=== PATIENT | female | born 1960 | race Caucasian/White ===

== ENCOUNTER 2023-01-31 20:09 | Emergency (ER) | payer BC ==
[2023-01-31] MEDS ORDERED: ONDANSETRON 4 MG/2 ML VIAL ONE (20:42)
[2023-01-31] MEDS ORDERED: FAMOTIDINE 20 MG/2 ML VIAL IV ONE (20:42)
[2023-01-31] MEDS ORDERED: MORPHINE 4 MG/ML SYR ONE (20:42)
[2023-01-31 21:06] LABS: Absolute Lymphocytes (CBC) 2.7 K/uL (0.7-4.9); Hematocrit 43.1 % (36.0-45.0); Lymphocytes % 27.9 % (15.3-44.8); MCV 90.2 fL (80-100); MPV 9.1 fL (7.6-11.3); Platelets 294 thou/uL (152-406); RBC Red Blood Cell Count 4.77 M/uL (3.86-4.86)
--- NOTE | 2023-01-31 21:20 | RAD REPORT ---
EXAM DESCRIPTION: Isidra Single View01/31/2023 9:08 pm CLINICAL HISTORY: upper abdomen pain COMPARISON: Chest Pa And Lat (2 Views) dated 06/19/2019 TECHNIQUE: Portable AP view of the chest. FINDINGS: The lungs are clear. No pneumothorax or effusion. The cardiomediastinal contours are unre markable. IMPRESSION: No acute cardiopulmonary process.
[2023-01-31 21:21] LABS: Bilirubin Total 0.7 mg/dL (0.2-1.0); Potassium 3.4 mEq/L (3.5-5.1); Protein, Total 7.8 g/dL (6.4-8.2)
--- NOTE | 2023-01-31 21:53 | RAD REPORT ---
EXAM DESCRIPTION: US - Abdomen Exam Limited - 01/31/2023 8:52 pm CLINICAL HISTORY: ABD PAIN COMPARISON: No comparisons TECHNIQUE: Sonographic grayscale and color flow images of the right upper abdominal quadrant were obtained. FINDINGS: The gallbladder demonstrates numerous layering shadowing calculi as well as echogenic slud ge. No pericholecystic fluid or gallbladder wall thickening. The common bile duct is normal measuring 6 mm. The liver demonstrates no findings of intrahepatic biliary dilatation. IMPRESSION: Cholelithiasis. No sonographic findings to suggest acute cholecystitis.
--- NOTE | 2023-01-31 22:32 | RAD REPORT ---
EXAM DESCRIPTION: CT - Abdomen Pelvis W Contrast - 01/31/2023 10:11 pm CLINICAL HISTORY: ABD PAIN COMPARISON: No comparisons TECHNIQUE: Thin cut axial CT imaging of the abdomen and pelvis was performed following intravenous a dministration of 95 mL Isovue 300. Multiplanar reformats were generated and reviewed. All CT scans are performed using dose optimization technique as appropriate and may include automated exposure control or mA/KV adjustment according to patient size. FINDINGS: No suspicious findings in the lung bases. The liver, spleen, adrenal glands, and pancreas show no suspicious findings. Gallbladder and biliary tree are also without suspicious finding. Symmetric renal function is seen with no hydronephrosis or suspicious renal mass. No dilated bowel loops or bowel wall thickening. No free air, free fluid or inflammatory stranding. N o hernia, mass or bulky lymphadenopathy. The urinary bladder is without significant finding. No suspicious bony findings. IMPRESSION: No acute intra-abdominal process.
--- NOTE | 2023-01-31 23:01 | EDPHYS ---
Physician Documentation [facility] Name: Courtney Suarez Age: 62 yrs Sex: Female : 1960 Arrival Date: 01/31/2023 Time: 20:09 Bed 15 Private MD: ED Physician Gonzalo Salinas HPI: 01/31 20:30 This 62 yrs old Female presents to ER via Ambulatory with complaints of Abdominal Pain, cp Vomiting. 20:30 The patient presents with abdominal pain in the epigastric area. Onset: The cp symptoms/episode began/occurred this afternoon, subsided and then returned this evening. The symptoms radiate to back. Associated signs and symptoms: Pertinent positives: nausea and vomiting, Pertinent negatives: chest pain, constipation, diarrhea, fever, vomiting blood. The symptoms are described as waxing/waning. Severity of pain: in the emergency department the pain has improved mildly. Historical: - Allergies: 20:23 Codeine; kb3 - Home Meds: 20:23 metoprolol tartrate 50 mg oral tablet [Active]; Edarbyclor 40-12.5 mg oral tablet kb3 [Active]; - PMHx: 20:24 Hypertensive disorder; kb3 - PSHx: 20:24 section; Jaw surgery; kb3 - Immunization history:: Adult Immunizations up to date, Client reports receiving the 2nd dose of the Covid vaccine, Last tetanus immunization: up to date. - Social history:: Smoking status: Patient denies any tobacco usage or history of. ROS: 20:35 Constitutional: Negative for body aches, chills, fever. cp 20:35 Cardiovascular: Negative for chest pain, edema, palpitations. cp 20:35 Respiratory: Negative for cough, shortness of breath, wheezing. Exam: 20:40 Constitutional: The patient appears in no acute distress, alert, awake, cp non-diaphoretic, non-toxic, well developed, well nourished, uncomfortable. 20:40 Head/Face: Normocephalic, atraumatic. cp 20:40 Eyes: Periorbital structures: appear normal, Conjunctiva: normal, no exudate, no injection, Sclera: no appreciated abnormality, Lids and lashes: appear normal, bilaterally. 20:40 ENT: External ear(s): are unremarkable, Nose: is normal, Mouth: Lips: moist, Oral mucosa: pink and intact, moist, Posterior pharynx: is normal, airway is patent, no erythema, no exudate. 20:40 Chest/axilla: Inspection: normal. 20:40 Cardiovascular: Rate: normal, Rhythm: regular, Edema: is not appreciated, JVD: is not appreciated. 20:40 Respiratory: the patient does not display signs of respiratory distress, Respirations: normal, no use of accessory muscles, no retractions, labored breathing, is not present, Breath sounds: are clear throughout, no decreased breath sounds, no stridor, no wheezing. 20:40 Abdomen/GI: Inspection: abdomen appears normal, Bowel sounds: active, all quadrants, Palpation: soft, in all quadrants, moderate abdominal tenderness, in the epigastric area, rebound tenderness, is not appreciated, involuntary guarding, is not appreciated. 20:40 Back: CVA tenderness, is absent. 20:40 Neuro: Orientation: to person, place \T\ time. Mentation: is normal, Motor: moves all fours, strength is normal, Sensation: is normal. Vital Signs: 20:21 BP 129 / 81; Pulse 96; Resp 20; Temp 98.1; Pulse Ox 100% ; Weight 82.55 kg; Height 5 kb3 ft. 6 in. ; Pain 2/10; 23:30 BP 123 / 67; Pulse 83; Resp 16; Pulse Ox 98% ; bp 20:21 Body Mass Index 29.38 (82.55 kg, 167.64 cm) kb3 20:21 Pain Scale: Adult kb3 MDM: 20:15 Patient medically screened. cp 21:00 Differential diagnosis: AAA, acute coronary syndrome, cholecystitis, Cholelithiasis, cp gastritis, gastroesophageal reflux disease, sympomatic leaking abdominal aortic aneurysm, pancreatitis, Peptic Ulcer Disease, Perf. Duodenal Ulcer, Perf. Gastric Ulcer, Ureterolithiasis, urinary tract infection. 23:00 Data reviewed: vital signs, nurses notes, lab test result(s), radiologic studies, CT cp scan, plain films, ultrasound. 23:00 Consideration of Admission/Observation Escalation of care including cp admission/observation considered. I considered the following discharge prescriptions or medication management in the emergency department Medications were administered in the Emergency Department. See MAR. Independent interpretation of the following test(s) in the Emergency Department EKG: See my EKG interpretation above X-Ray: My interpretation is chest xray negative for infiltrates. Counseling: I had a detailed discussion with the patient and/or guardian regarding the historical points, exam findings, and any diagnostic results supporting the discharge/admit diagnosis, lab results, radiology results, the need for outpatient follow up, for definitive care, a general surgeon, to return to the emergency department if symptoms worsen or persist or if there are any questions or concerns that arise at home. Response to treatment: the patient's symptoms have markedly improved after treatment, and as a result, I will discharge patient. 01/31 20:28 Order name: CBC with Diff; Complete Time: 22:33 01/31 20:28 Order name: CMP; Complete Time: 22:33 cp 01/31 22:33 Interpretation: Normal except: K 3.4; GLUC 118; BUN 20; CRE 1.09; GFR 57; ALT 61; GLOB cp 3.8. 01/31 20:28 Order name: Lipase; Complete Time: 22:33 01/31 22:46 Interpretation: Reviewed. 01/31 20:28 Order name: US Abdomen Limited: gallbladder; Complete Time: 22:33 01/31 22:34 Interpretation: Report reviewed. 01/31 20:28 Order name: CT Abd/Pelvis - IV Contrast Only; Complete Time: 22:33 01/31 20:28 Order name: XRAY Chest (1 view); Complete Time: 22:33 01/31 20:28 Order name: IV Saline Lock; Complete Time: 21:07 01/31 20:28 Order name: Labs collected and sent; Complete Time: 21:07 01/31 22:46 Order name: PO challenge; Complete Time: 23:22 cp Administered Medications: 20:45 Drug: Famotidine IVP 20 mg Route: IVP; Site: right forearm; bp 23:12 Follow up: Response: No adverse reaction bp 20:45 Drug: Ondansetron IVP 4 mg Route: IVP; Site: right forearm; bp 23:13 Follow up: Response: No adverse reaction bp 20:45 Drug: morphine IVP or IV 4 mg Route: IVP; Infused Over: 4 mins; Site: right forearm; bp 23:15 Drug: Potassium PO Effervescent Tablet 25 mEq Route: PO; bp 23:31 Follow up: Response: No adverse reaction bp 23:15 Drug: Dicyclomine PO 20 mg Route: PO; bp 23:31 Follow up: Response: No adverse reaction bp Disposition: 21:37 Co-signature as Attending Physician, Gonzalo Salinas MD I agree with the assessment sp4 and plan of care. I reviewed the patient's care provided by the Advanced Practice Provider and agree with the diagnosis and treatment plan. Disposition Summary: 01/31/23 23:01 Discharge Ordered Location: Home cp Problem: new cp Symptoms: have improved cp Condition: Stable cp Diagnosis - Other cholelithiasis without obstruction cp - Nausea with vomiting, unspecified cp Followup: cp - With: Delon Velazquez MD - When: 2 - 3 days - Reason: Recheck today's complaints Discharge Instructions: - Discharge Summary Sheet cp - Nausea and Vomiting, Adult cp - Cholelithiasis cp Forms: - Medication Reconciliation Form cp - Thank You Letter cp - Antibiotic Education cp - Prescription Opioid Use cp - Patient Portal Instructions cp - Leadership Thank You Letter cp Prescriptions: - Zofran 4 mg Oral Tablet - take 1 tablet by ORAL route every 6 hours As needed; 20 tablet; Refills: 0, cp Product Selection Permitted - dicyclomine 20 mg Oral Tablet - take 1 tablet by ORAL route 4 times per day; 20 tablet; Refills: 0, Product cp Selection Permitted Signatures: Dispatcher [employer] EDMS Kush Cavanaugh PA PA cp Peltier, Brian, RN RN Bernice Hyatt, DELMI RN kb3 Gonzalo Salinas MD MD sp4
--- NOTE | 2023-01-31 23:01 | ER ---
Nurse's Notes [facility] Name: Courtney Suarez Age: 62 yrs Sex: Female : 1960 Arrival Date: 01/31/2023 Time: 20:09 Bed 15 Private MD: Diagnosis: Other cholelithiasis without obstruction;Nausea with vomiting, unspecified Presentation: 01/31 20:21 Chief complaint: Patient states: Periumbilical pain that began around 1530 today, kb3 02/23, radiates into RLQ. Pain subsided approximately 1 hr [employer] with only mild discomfort in RLQ at this time. 1 episode of vomiting. Coronavirus screen: Vaccine status: Patient reports receiving the 2nd dose of the covid vaccine. Client denies travel out of the [place] in the last 14 days. Ebola Screen: Patient negative for fever greater than or equal to 101.5 degrees Fahrenheit, and additional compatible Ebola Virus Disease symptoms Patient denies exposure to infectious person. Patient denies travel to an Ebola-affected area in the 21 days before illness onset. Initial Sepsis Screen: Does the patient meet any 2 criteria? No. Patient's initial sepsis screen is negative. Does the patient have a suspected source of infection? No. Patient's initial sepsis screen is negative. Risk Assessment: Do you want to hurt yourself or someone else? Patient reports no desire to harm self or others. Onset of symptoms was January 31, 2023 at 15:30. 20:21 Method Of Arrival: Ambulatory kb3 20:21 Acuity: ANSELMO 3 kb3 Triage Assessment: 20:24 General: Appears in no apparent distress. uncomfortable, Behavior is calm, cooperative. kb3 Pain: Complains of pain in right lower quadrant Pain does not radiate. Pain currently is 1 out of 10 on a pain scale. at worst was 10 out of 10 on a pain scale. Quality of pain is described as sharp, Pain began 4 hours ago. GI: Reports lower abdominal pain, nausea, vomiting. Historical: - Allergies: 20:23 Codeine; kb3 - Home Meds: 20:23 metoprolol tartrate 50 mg oral tablet [Active]; Edarbyclor 40-12.5 mg oral tablet kb3 [Active]; - PMHx: 20:24 Hypertensive disorder; kb3 - PSHx: 20:24 section; Jaw surgery; kb3 - Immunization history:: Adult Immunizations up to date, Client reports receiving the 2nd dose of the Covid vaccine, Last tetanus immunization: up to date. - Social history:: Smoking status: Patient denies any tobacco usage or history of. Screenin:30 [facility] ED Fall Risk Assessment (Adult) History of falling in the last 3 months, bp including since admission No falls in past 3 months (0 pts). Abuse screen: Denies threats or abuse. Denies injuries from another. Nutritional screening: No deficits noted. Tuberculosis screening: No symptoms or risk factors identified. Assessment: 20:30 General: SEE TRIAGE NOTE. bp 22:00 Reassessment: No changes from previously documented assessment. Patient is alert, bp oriented x 3, equal unlabored respirations, skin warm/dry/pink. 23:29 Reassessment: DC HOME AMBULATORY. bp Vital Signs: 20:21 BP 129 / 81; Pulse 96; Resp 20; Temp 98.1; Pulse Ox 100% ; Weight 82.55 kg; Height 5 kb3 ft. 6 in. ; Pain 2/10; 23:30 BP 123 / 67; Pulse 83; Resp 16; Pulse Ox 98% ; bp 20:21 Body Mass Index 29.38 (82.55 kg, 167.64 cm) kb3 20:21 Pain Scale: Adult kb3 ED Course: 20:13 Patient arrived in ED. es 20:15 Kush Cavanaugh PA is PHCP. cp 20:15 Gonzalo Salinas MD is Attending Physician. cp 20:19 Len Perrin, RN is Primary Nurse. bp 20:23 Triage completed. kb3 20:24 Arm band placed on right wrist. Patient placed in an exam room, on a stretcher. kb3 20:30 Patient has correct armband on for positive identification. Bed in low position. Call bp light in reach. Side rails up X2. 20:30 Inserted saline lock: 20 gauge in right forearm, using aseptic technique. Blood bp collected. 20:54 US Abdomen Limited: gallbladder In Process Unspecified. EDMS 21:10 XRAY Chest (1 view) In Process Unspecified. EDMS 22:12 CT Abd/Pelvis - IV Contrast Only In Process Unspecified. EDMS 23:00 Delon Velazquez MD is Referral Physician. cp 23:30 No provider procedures requiring assistance completed. IV discontinued, intact, bp bleeding controlled, No redness/swelling at site. Pressure dressing applied. Administered Medications: 20:45 Drug: Famotidine IVP 20 mg Route: IVP; Site: right forearm; bp 23:12 Follow up: Response: No adverse reaction bp 20:45 Drug: Ondansetron IVP 4 mg Route: IVP; Site: right forearm; bp 23:13 Follow up: Response: No adverse reaction bp 20:45 Drug: morphine IVP or IV 4 mg Route: IVP; Infused Over: 4 mins; Site: right forearm; bp 23:15 Drug: Potassium PO Effervescent Tablet 25 mEq Route: PO; bp 23:31 Follow up: Response: No adverse reaction bp 23:15 Drug: Dicyclomine PO 20 mg Route: PO; bp 23:31 Follow up: Response: No adverse reaction bp Outcome: 23:01 Discharge ordered by . cp 23:31 Discharged to home ambulatory, with family. bp 23:31 Condition: stable 23:31 Discharge instructions given to patient, Instructed on discharge instructions, follow up and referral plans. medication usage, Demonstrated understanding of instructions, follow-up care, medications, Prescriptions given X 2. 23:32 Patient left the ED. bp Signatures: Dispatcher [employer] Isabella Liu Corey, PA PA cp Peltier, Brian, DELMI RN Bernice Hyatt, RN RN kb3
[2023-01-31] MEDS ORDERED: DICYCLOMINE HCL 10 MG CAP ONE (23:26)
[2023-01-31] MEDS ORDERED: POTASSIUM 25 MEQ EFFERV TAB ONE (23:26)
[2023-02-01 00:31] VITALS: TEMP 98.1
[2023-02-01 00:33] VITALS: BP 123/67; O2SAT 98
== END 2023-01-31 23:32 | disposition home or self-care (01) ==
LOC: ER 20:09
DX: K80.80 Other cholelithiasis without obstruction (principal); R11.2 Nausea with vomiting, unspecified; I10 Essential (primary) hypertension; Z88.5 Allergy status to narcotic agent
CPT/HCPCS: 85025; 36415; 83690; 80053; 74177; 71045; 76705; 96375; 96374; 99284; Q9967; J2405

== ENCOUNTER 2023-02-02 02:01 | Inpatient (IN) | payer BC ==
[2023-02-02] MEDS ORDERED: ONDANSETRON 4 MG/2 ML VIAL IV ONE (02:49)
[2023-02-02] MEDS ORDERED: NA CHLORIDE 0.9% 1,000 ML IV ONE (02:49)
[2023-02-02] MEDS ORDERED: METOCLOPRAMIDE 10 MG/2mL INJ IV ONE (03:00)
[2023-02-02 04:01] LABS: Absolute Lymphocytes (CBC) 2.6 K/uL (0.7-4.9); Lymphocytes % 20.1 % (15.3-44.8); MCV 91.4 fL (80-100); MPV 9.3 fL (7.6-11.3); Platelets 282 thou/uL (152-406); RBC Red Blood Cell Count 4.82 M/uL (3.86-4.86)
[2023-02-02 04:03] LABS: Albumin 4.1 g/dL (3.4-5.0); Potassium 3.7 mEq/L (3.5-5.1); Protein, Total 7.9 g/dL (6.4-8.2)
[2023-02-02 04:11] LABS: SARS-CoV-2 Antigen Rapid Res Negative (Negative)
--- NOTE | 2023-02-02 06:56 | ER ---
Nurse's Notes [facility] Name: Courtney Suarez Age: 62 yrs Sex: Female : 1960 Arrival Date: 02/02/2023 Time: 02:01 Bed 18 Private MD: Diagnosis: Acute cholecystitis Presentation: 02/02 02:40 Chief complaint: Patient states: ABD PAIN. Coronavirus screen: At this time, the client bp does not indicate any symptoms associated with coronavirus-19. Ebola Screen: No symptoms or risks identified at this time. Initial Sepsis Screen: Does the patient meet any 2 criteria? No. Patient's initial sepsis screen is negative. Does the patient have a suspected source of infection? No. Patient's initial sepsis screen is negative. Risk Assessment: Do you want to hurt yourself or someone else? Patient reports no desire to harm self or others. Onset of symptoms is unknown. 02:40 Method Of Arrival: Wheelchair bp 02:40 Acuity: ANSELMO 3 bp Triage Assessment: 03:40 General: Appears distressed, uncomfortable, Behavior is cooperative, appropriate for bp age, anxious. 03:40 Pain: Complains of pain in abdomen. GI: Reports upper abdominal pain. bp Historical: - Allergies: 04:38 Codeine; bp - Home Meds: 04:38 Edarbyclor 40-12.5 mg Oral tablet [Active]; metoprolol tartrate 50 mg Oral tablet bp [Active]; - PMHx: 04:38 Hypertensive disorder; bp - PSHx: 04:38 section; jaw surgery; bp - Immunization history:: Adult Immunizations up to date. - Social history:: Smoking status: unknown. - Family history:: not pertinent. Screenin:40 [facility] ED Fall Risk Assessment (Adult) History of falling in the last 3 months, bp including since admission No falls in past 3 months (0 pts). Abuse screen: Denies threats or abuse. Denies injuries from another. Nutritional screening: No deficits noted. Tuberculosis screening: No symptoms or risk factors identified. Assessment: 02:40 General: SEE TRIAGE NOTE. bp 05:13 Reassessment: Patient appears in no apparent distress at this time. Patient is alert, bp oriented x 3, equal unlabored respirations, skin warm/dry/pink. 06:30 Reassessment: Patient appears in no apparent distress at this time. Patient is alert, bp oriented x 3, equal unlabored respirations, skin warm/dry/pink. 07:00 Reassessment: Patient appears in no apparent distress at this time. Patient and/or db family updated on plan of care and expected duration. Pain level reassessed. Patient is alert, oriented x 3, equal unlabored respirations, skin warm/dry/pink. Patient states feeling better. Patient states symptoms have improved. Neuro: Level of Consciousness is awake, alert, obeys commands, Oriented to person, place, time, situation. Respiratory: Airway is patent Respiratory effort is even, unlabored, Respiratory pattern is regular, symmetrical. 08:00 Reassessment: Patient appears in no apparent distress at this time. Patient and/or db family updated on plan of care and expected duration. Pain level reassessed. Patient is alert, oriented x 3, equal unlabored respirations, skin warm/dry/pink. General: Appears in no apparent distress. comfortable, Behavior is calm, cooperative. 09:26 Reassessment: REPORT GIVEN TO DELMI JONES FOR PATIENT GOING TO 225. db 09:29 Reassessment: Patient appears in no apparent distress at this time. Patient and/or db family updated on plan of care and expected duration. Pain level reassessed. Patient is alert, oriented x 3, equal unlabored respirations, skin warm/dry/pink. GI: Vital Signs: 02:40 BP 102 / 50; Pulse 70; Resp 16; Temp 98; Pulse Ox 100% ; bp 05:13 BP 111 / 63; Pulse 76; Resp 16; Pulse Ox 96% ; bp 06:30 BP 118 / 69; Pulse 73; Resp 16; Pulse Ox 98% ; bp 07:00 BP 126 / 72; Pulse 71; Resp 16; Pulse Ox 98% on R/A; db 09:00 BP 107 / 76; Pulse 63; Resp 16; Pulse Ox 100% on R/A; db ED Course: 02:38 Patient arrived in ED. mr 02:40 Arm band placed on. bp 02:40 Patient has correct armband on for positive identification. Bed in low position. Call bp light in reach. Side rails up X2. 02:40 Inserted saline lock: 22 gauge in right antecubital area, using aseptic technique. bp Blood collected. 03:23 Len Perrin, RN is Primary Nurse. bp 03:35 Abdomen Exam Limited In Process Unspecified. EDMS 04:09 Abdomen In Process Unspecified. EDMS 04:38 Triage completed. bp 06:31 Gonzalo Salinas MD is Attending Physician. sp4 06:55 Júnior Yoon is Hospitalizing Provider. sp4 09:28 Provided Education on: ADMISSION. db 09:28 No provider procedures requiring assistance completed. Patient admitted, IV remains in db place. Administered Medications: 07:51 Drug: Rocephin - Rocephin (cefTRIAXone) IVPB 1 grams IVPB once over 30 mins; (mix in 50 db mL NS) Route: IVPB; Infused Over: 30 mins; Site: right antecubital; 08:20 Follow up: Response: No adverse reaction; IV Status: Completed infusion; IV Intake: 50mldb 08:19 Drug: metroNIDAZOLE IVPB 500 mg 100 ml IVPB at 200 ml/hr once over 30 mins Volume: 100 db ml; Route: IVPB; Rate: 200 ml/hr; Infused Over: 30 mins; Site: right antecubital; 09:25 Follow up: Response: No adverse reaction; IV Status: Completed infusion; IV Intake: db 100ml Medication: 02:40 VIS not applicable for this client. bp Intake: 08:20 IV: 50ml; Total: 50ml. db 09:25 IV: 100ml; Total: 150ml. db Outcome: 06:56 Decision to Hospitalize by Provider. sp4 09:33 Admitted to Med/surg db 09:33 Condition: stable 09:33 Instructed on the need for admit, 09:37 Patient left the ED. vg2 Signatures: Dispatcher [employer] EDMS ChurchillAlisa norton, Reg Reg Len Foster, RN RN bp Natasha Coughlin, RN RN db Gonzalo Salinas MD MD sp4 Shona Maravilla RN RN vg2
--- NOTE | 2023-02-02 06:56 | EDPHYS ---
Physician Documentation [facility] Name: Courtney Suarez Age: 62 yrs Sex: Female : 1960 Arrival Date: 02/02/2023 Time: 02:01 Bed 18 Private MD: ED Physician Gonzalo Salinas HPI: 02/02 06:31 This 62 yrs old Female presents to ER via Wheelchair with complaints of sp4 Abdominal Pain. 06:50 Patient is 62-year-old female who presented with a cute onset of moderate to severe sp4 right upper quadrant abdominal pain associated with multiple episodes of vomiting , patient states that she was here on 01/31/2023 with similar symptoms and was discharged home with Bentyl and ondansetron. At that time patient's CAT scan revealed no acute intra-abdominal process. Patient's ultrasound revealed cholelithiasis without sonographic findings to suggest acute cholecystitis. Patient reported this morning she developed severe right upper quadrant pain.. Historical: - Allergies: 04:38 Codeine; bp - Home Meds: 04:38 Edarbyclor 40-12.5 mg Oral tablet [Active]; metoprolol tartrate 50 mg Oral tablet bp [Active]; - PMHx: 04:38 Hypertensive disorder; bp - PSHx: 04:38 section; jaw surgery; bp - Immunization history:: Adult Immunizations up to date. - Social history:: Smoking status: unknown. - Family history:: not pertinent. ROS: 06:50 Constitutional: Negative for fever, chills, and weight loss, Abdomen/GI: Acute right sp4 upper quadrant abdominal pain, positive for abdominal pain, positive nausea vomiting 06:50 All other systems are negative, Exam: 06:50 Constitutional: This is a well developed, well nourished patient who is awake, alert, sp4 positive moderate distress secondary to pain Head/Face: Normocephalic, atraumatic. Eyes: Pupils equal round and reactive to light, extra-ocular motions intact. Lids and lashes normal. Conjunctiva and sclera are not injected. Cornea within normal limits. Periorbital areas with no swelling, redness, or edema. ENT: Nares patent. No nasal discharge, no septal abnormalities noted. Tympanic membranes are normal and external auditory canals are clear. Oropharynx with no redness, swelling, or masses, exudates, or evidence of obstruction, uvula midline. Mucous membranes moist. Neck: Trachea midline, no thyromegaly or masses palpated, and no cervical lymphadenopathy. Supple, full range of motion without nuchal rigidity, or vertebral point tenderness. Chest/axilla: Normal chest wall appearance and motion. Nontender with no deformity. No lesions are appreciated. Cardiovascular: Regular rate and rhythm with a normal S1 and S2. No gallops, murmurs, or rubs. Normal PMI, no JVD. No pulse deficits. Respiratory: Lungs have equal breath sounds bilaterally, clear to auscultation and percussion. No rales, rhonchi or wheezes noted. No increased work of breathing, no retractions or nasal flaring. Abdomen/GI: Soft, positive right upper quadrant tenderness, hypoactive bowel sounds, positive rebound, positive Platt sign, no rigidity or distention Back: No spinal tenderness. No costovertebral tenderness. Skin: Warm, dry with normal turgor. Normal color with no rashes, no lesions, and no evidence of cellulitis. MS/ Extremity: Pulses equal, no cyanosis. Neurovascular intact. Full, normal range of motion. Neuro: Awake and alert, GCS 15, oriented to person, place, time, and situation. Cranial nerves II-XII grossly intact. Motor strength 5/5 in all extremities. Sensory grossly intact. Psych: Awake, alert, with orientation to person, place and time. Behavior, mood, and affect are within normal limits Vital Signs: 02:40 BP 102 / 50; Pulse 70; Resp 16; Temp 98; Pulse Ox 100% ; bp 05:13 BP 111 / 63; Pulse 76; Resp 16; Pulse Ox 96% ; bp 06:30 BP 118 / 69; Pulse 73; Resp 16; Pulse Ox 98% ; bp 07:00 BP 126 / 72; Pulse 71; Resp 16; Pulse Ox 98% on R/A; db 09:00 BP 107 / 76; Pulse 63; Resp 16; Pulse Ox 100% on R/A; db MDM: 06:33 ED course: CT - Comparison: Gallbladder ultrasound report from 01/31/2023. The images sp4 were unavailable for review FINDINGS: The gallbladder is well distended and contains multiple intraluminal echoes most consistent with gallstones. There is also some echogenic debris within the lumen likely representing sludge. The gallbladder wall measures approximately 3 mm in diameter. The common bile duct measures approximately 5 mm in diameter. No definite pericholecystic fluid is identified. IMPRESSION: Cholelithiasis and sludge within the gallbladder lumen without definite biliary ductal dilatation or definite pericholecystic fluid. There is borderline gallbladder wall thickening. Findings are similar when compared to the prior study.. 06:35 ED course: IMPRESSION: 1. No evidence of acute intra-abdominal or intrapelvic sp4 pathology. 2. Heterogeneous attenuation of the liver most likely related to fatty infiltration. 3. Increased attenuation in the dependent portion of the gallbladder lumen which may be due to sludge and/or small stones. 4. Occasional colonic diverticulosis. 5. Chronic degenerative disc disease at L4-L5 and to a lesser degree L5-S1. . 06:43 Patient medically screened. sp4 06:44 ED course: CT- IMPRESSION: 1. No evidence of acute intra-abdominal or intrapelvic sp4 pathology. 2. Heterogeneous attenuation of the liver most likely related to fatty infiltration. 3. Increased attenuation in the dependent portion of the gallbladder lumen which may be due to sludge and/or small stones. 4. Occasional colonic diverticulosis. 5. Chronic degenerative disc disease at L4-L5 and to a lesser degree L5-S1.. 06:44 Consideration of Admission/Observation Patient was admitted/placed on observation. sp4 Escalation of care including admission/observation considered. Management of patient was discussed with the following: Educational Director: Dr. Velazquez with . 06:50 Differential Diagnosis altered mental status, sepsis, flu. Data reviewed: vital signs, sp4 nurses notes, old medical records, lab test result(s), radiologic studies, CT scan, ultrasound. ED course: Today ultrasound reveals signs of mild cholecystitis. We will request admission to internal medicine with consultation to general surgery. 02/02 02:53 Order name: CBC with Automated Diff; Complete Time: 06:32 EDIL 02/02 02:53 Order name: Comprehensive Metabolic Panel; Complete Time: 06: EDIL 02/02 02:53 Order name: Lipase; Complete Time: 06: EDIL 02/02 02:54 Order name: SARS-COV-2 Antigen Rapid; Complete Time: 06:32 EDIL 02/02 08:25 Order name: Magnesium EDIL 02/02 08:25 Order name: Phosphorus EDIL 02/02 08:25 Order name: Urinalysis w/ reflexes EDMS 02/02 08:25 Order name: Basic Metabolic Panel EDMS 02/02 08:25 Order name: Basic Metabolic Panel EDMS 02/02 08:25 Order name: CBC with Automated Diff EDMS 02/02 08:25 Order name: CBC with Automated Diff EDMS 02/02 08:25 Order name: Lipid Profile EDMS 02/02 08:25 Order name: Lipid Profile EDMS 02/02 02:54 Order name: Abdomen Exam Limited EDMS 02/02 02:57 Order name: Abdomen EDMS 02/02 08:33 Order name: Cholangiogram EDMS 02/02 08:25 Order name: NPO EDMS Administered Medications: 07:51 Drug: Rocephin - Rocephin (cefTRIAXone) IVPB 1 grams IVPB once over 30 mins; (mix in 50 db mL NS) Route: IVPB; Infused Over: 30 mins; Site: right antecubital; 08:20 Follow up: Response: No adverse reaction; IV Status: Completed infusion; IV Intake: 50mldb 08:19 Drug: metroNIDAZOLE IVPB 500 mg 100 ml IVPB at 200 ml/hr once over 30 mins Volume: 100 db ml; Route: IVPB; Rate: 200 ml/hr; Infused Over: 30 mins; Site: right antecubital; 09:25 Follow up: Response: No adverse reaction; IV Status: Completed infusion; IV Intake: db 100ml Disposition Summary: 02/02/23 06:56 Hospitalization Ordered Notes: Hospitalization Status: Inpatient Admission sp4 Provider: Júnior Yoon Location: Telemetry/[facility] (Inpatient) sp4 Condition: Stable sp4 Problem: new sp4 Symptoms: have improved sp4 Bed/Room Type: Standard sp4 Room Assignment: 224(02/02/23 09:19) ja1 Diagnosis - Acute cholecystitis sp4 Forms: - Medication Reconciliation Form sp4 - SBAR form sp4 - Leadership Thank You Letter sp4 Signatures: Dispatcher Med[employer] Leon Mejia RN RN Len Lyon RN RN Natasha Murphy RN RN db Potepalov, Sergey, MD MD sp4 Corrections: (The following items were deleted from the chart) 02:57 02:54 CT-ABD ordered. EDMS EDMS 09:13 06:56 sp4 ja1 09:19 09:13 225 ja1 ja1
[2023-02-02] MEDS ORDERED: KETOROLAC 30 MG/ML INJ IV ONE (07:15)
[2023-02-02] MEDS ORDERED: FENTANYL CITR 100 MCG/2 ML IV ONE (07:15)
[2023-02-02] MEDS ORDERED: CEFTRIAXONE 1000 MG/VIAL ONE (07:45)
[2023-02-02] MEDS ORDERED: METRONIDAZOLE 500mg IVPB 500 MG/100 ML BAG IV ONE (07:45)
[2023-02-02] MEDS ORDERED: NA CHLORIDE 0.9% 50 ML ONE (07:45)
[2023-02-02] MEDS ORDERED: ACETAMINOPHEN 650MG/RECT SUPP PR PRN (08:17)
[2023-02-02] MEDS ORDERED: ONDANSETRON 4 MG (ODT) TAB PO PRN (08:23)
--- NOTE | 2023-02-02 08:33 | P.HP ---
Certification for Inpatient Patient admitted to: Observation With expected LOS: <2 Midnights Patient will require the following post-hospital care: None Practitioner: I am a practitioner with admitting privileges, knowledge of patient current condition, hospital course, and medical plan of care. Services: Services provided to patient in accordance with Admission requirements found in Title 42 Section 412.3 of the Code of Federal Regulations Patient History Date of Service: 02/02/23 Reason for admission: Abdominal pain. History of Present Illness: Patient is a 62-year-old female with a past medical history significant for hypertension who presents with complaint of right upper quadrant pain onset 2 days ago. Patient was seen in the ER 2 days ago for similar symptoms and was discharged home with Bentyl and Zofran. Patient reported that she started experiencing pain again yesterday. Patient rated pain as 10/10 in severity and described pain as squeezing in quality. Patient reported associated signs and symptoms of nausea and vomiting. Patient denies any other signs and symptoms. Symptoms are aggravated or relieved by nothing. Patient decided to present to the hospital due to worsening symptoms. Allergies codeine Allergy (Verified 02/02/23 02:59) Itching/Hives/Rash Home Medications: Azilsartan Med/Chlorthalidone [Edarbyclor 40-12.5 mg Tablet] 1 tab PO BEDTIME 02/02/23 Metoprolol Tartrate 25 mg PO BID 02/02/23 - Past Medical/Surgical History -: HTN -: Jaw Surgery -: Neck Surgery -: Back Surgery -: - Family History Mother -: Cancer Father -: Cancer - Social History Smoking Status: Former smoker Alcohol use: No CD- Drugs: No Caffeine use: Yes Place of Residence: Home Review of Systems General: Unremarkable Eyes: Unremarkable ENT: Unremarkable Respiratory: Unremarkable Cardiovascular: Unremarkable Gastrointestinal: Nausea, Vomiting, Abdominal Pain Genitourinary: Unremarkable Musculoskeletal: Unremarkable Integumentary: Unremarkable Neurological: Unremarkable Lymphatics: Unremarkable Physical Examination - Physical Exam General: Alert, In no apparent distress, Oriented x3, Cooperative HEENT: Atraumatic, PERRLA, Mucous membr. moist/pink, EOMI, Sclerae nonicteric Neck: Supple, 2+ carotid pulse no bruit, No LAD, Without JVD or thyroid abnormality Respiratory: Clear to auscultation bilaterally, Normal air movement Cardiovascular: Regular rate/rhythm, Normal S1 S2 Capillary refill: <2 Seconds Gastrointestinal: Normal bowel sounds, Tenderness Musculoskeletal: No clubbing, No swelling, No tenderness Integumentary: No rashes Neurological: Normal speech, Normal tone, Normal affect Lymphatics: No axilla or inguinal lymphadenopathy - Studies Laboratory Data (last 24 hrs) 02/02/23 02/02/23 03:10 03:10 WBC 12.70 H Hgb 15.2 H Hct 44.0 Plt Count 282 Sodium 138 Potassium 3.7 BUN 18 Creatinine 1.23 H Glucose 114 H Total Bilirubin 1.0 AST 120 H ALT 119 H Alkaline Phosphatase 88 Lipase 45 Assessment and Plan - Plan --Acute cholecystitis. Patient placed on antibiotics. Surgeon consulted. We will keep patient NPO. Continue IV hydration. MRCP pending for further evaluation. We will await further recommendation from surgeon. --Acute pain. We will manage pain with current pain medication regimen. --Hypertension. Stable. We will manage BP with hydralazine as needed. --Leukocytosis. Likely secondary to acute cholecystitis. Continue antibiotics. We will continue to monitor WBC levels. --Nausea and vomiting. Antiemetics on board. Continue IV hydration. --MARLON. Baseline functions unknown. Continue IV hydration. We will continue to monitor renal functions. -- DVT prophylaxis with SCDs. Discharge Plan: Home Plan to discharge in: 48 Hours - Advance Directives Does patient have a Living Will: No Does patient have a Durable POA for Healthcare: No - Code Status/Comfort Care Code Status Assessed: Yes Physician Review: Patient Assessed, Agree with Above Assessment and Plan Critical Care: No
[2023-02-02 09:59] VITALS: BMI 29.3
[2023-02-02] MEDS: NA CHLORIDE 0.9% 1,000 ML IV SCH ×2 (10:17→22:20)
[2023-02-02 11:17] LABS: Magnesium 2.4 mg/dL (1.6-2.4); Phosphorus 2.5 mg/dL (2.5-4.9)
--- NOTE | 2023-02-02 11:48 | RAD REPORT ---
EXAM DESCRIPTION: MRI - Cholangiogram - 02/02/2023 11:22 am CLINICAL HISTORY: Acute cholecystitis COMPARISON: Abdomen Pelvis Wo Contrast dated 02/02/2023; Abdomen Exam Limited dated 02/02/2023 TECHNIQUE: Multiplanar multisequence MRI of the abdomen, obtained without IV contrast, utilizing [employer] sequences. FINDINGS: Small hypointense calculi within the gallbladder lumen, largest at the distal body measuri ng 1 cm. No pericholecystic fluid or apparent gallbladder wall thickening. No intrahepatic biliary ductal dilation. Common bile duct is normal in caliber, 4 millimeter. No filling defects to suggest choledocholithias is. Smooth tapering at the ampulla. Main pancreatic duct is not dilated. The visualized aspects of the liver, spleen, adrenal glands, pancreas, and kidneys are unremarkable. Visualized aspects of the bowel are unremarkable. No suspicious osseous lesions. Trace bilateral pleural effusions IMPRESSION: Cholelithiasis. Otherwise normal MR cholangiogram, without dilation of the biliary ducta l system or evidence of choledocholithiasis.
[2023-02-02] MEDS ORDERED: HYDRALAZINE HCL 20 MG/ML VIAL IV PRN (11:54)
[2023-02-02] MEDS: PIPER TAZO 3.375 GM in NA CHLORIDE 0.9% 100 ML IV SCH ×2 (12:06→17:12)
--- NOTE | 2023-02-02 17:01 | CON ---
Date of Consultation: 02/02/2023 Reason For Service: Symptomatic cholelithiasis, acute cholecystitis. History Of Present Illness: This is the case of a 62-year-old patient, who comes to us with epigastr ic right upper quadrant pain, radiating to the back associated with nausea and vomiting. Apparently, she came to the hospital 2 days ago on Wednesday night, but after receiving some treatment, apparentl y she felt better and she was discharged home. 48 hours later, she comes back with the abdominal kallie n in fact at the same time after eating. At this time, she was admitted for IV antibiotics and surgi luis options of cholecystectomy. She denies any dysuria, hematuria, hematochezia, melena. Denies any recent traveling out of the country. Denies any family member sick at home. Denies any jaundice. Review of Systems: Nausea, vomiting, abdominal pain. Ten points otherwise unremarkable. Physical Examination: General: The patient is awake, alert. HEENT: Pupils are equal, reactive. Anicteric. Neck: Supple. Chest: Clear. Heart: S1, S2. Abdomen: Soft and depressible. There is epigastric right upper quadrant tenderness with Platt sign positive. Breasts: Deferred. Pelvic: Deferred. Rectal: Deferred. Extremities: Good capillary refill. Past Medical History: Shows hypertension. Social History: She does not smoke. She does drink alcohol. Allergies: REVIEWED. Medications: Reviewed. Laboratory Data: Blood work reviewed with AST and ALT mildly elevated. Imaging: Ultrasound shows cholelithiasis. MRCP is still pending. Assessment: Symptomatic cholelithiasis, acute cholecystitis. The patient wants to use surgical opti ons at this moment, so we explained to her the options of laparoscopic possible open cholecystectomy with benefits, alternatives and risks including, but not limited to infection, bleeding, damage to ad jacent structures, anesthesia complication, choledocholithiasis, bile leak, pancreatitis, [place], and gildardo n . She also understands this may not relieve any symptoms. She might need more than one surgi luis intervention. We are going to continue with this plan, obviously depending on that MRCP results. LATRICIA/LAMONTE Voice ID: [id number] Report ID: [id number]
--- NOTE | 2023-02-02 17:48 | RAD REPORT ---
EXAM DESCRIPTION: CT - Abdomen Pelvis Wo Contrast - 02/02/2023 7:07 am CLINICAL HISTORY: 62 years Female abdominal pain RUQ TECHNIQUE: Axial CT imaging of the abdomen and pelvis was performed without oral or intravenous cont rast. Sagittal and coronal reconstructed images were then performed. The CT study is performed acco rding to ALARA (as low as reasonably achievable) or ALARA/IMAGE GENTLY, with automatic adjustment of mA and/or kV according to patient size. Performed on: 02/02/2023 at 4:01 AM COMPARISON: CT abdomen and pelvis with IV contrast performed on 01/31/2023. FINDINGS: Lung bases: The lung bases are clear. There is minimal bibasilar atelectasis and/or fibros is. Liver: The liver is normal in size and configuration. No focal hepatic abnormalities are appreciated on this unenhanced scan. There is heterogeneous attenuation of the liver most likely related to fatty infiltration. Spleen: The spleen is normal in size, configuration and attenuation. No focal splenic abnormalities a re appreciated on this unenhanced scan. Gallbladder and bile duct: The gallbladder is well distended. There is increased attenuation in the dependent portion of the gallbladder lumen which may be due to sludge and/or small stones. There is no biliary ductal dilatation. Pancreas: The pancreas is grossly normal in size and configuration. Adrenal Glands: The adrenal glands are normal in size and configuration. Kidneys: The kidneys are normal in size and configuration. There is no evidence of hydronephrosis. Th ere is no evidence of nephrolithiasis. No focal renal abnormalities are identified. Stomach: The stomach is grossly normal. There is no definite hiatal hernia. Bowel: The bowel gas pattern is non specific and non obstructive. There is occasional colonic diverti culosis. Appendix: The appendix is normal. Free air: There is no evidence of free air. Free fluid: There is no evidence of free fluid. Vasculature: The aorta is normal in caliber and contour. The inferior vena cava is grossly unremarkab le. There are very mild atherosclerotic calcifications along the abdominal aorta. Lymphadenopathy: No pathologic lymphadenopathy is identified. Bladder: The bladder is well distended and smooth in contour. There is increased attenuation within t he bladder lumen likely related to contrast excretion from the recent contrast-enhanced CT examinatio n. Reproductive: The uterus is grossly within normal limits. Bones: No acute osseous abnormalities are identified. There is chronic degenerative disc disease at L 4-L5 and to a lesser degree L5-S1. Soft tissues: No acute soft tissue abnormalities are identified. IMPRESSION: 1. No evidence of acute intra-abdominal or intrapelvic pathology. 2. Heterogeneous attenuation of the liver most likely related to fatty infiltration. 3. Increased attenuation in the dependent portion of the gallbladder lumen which may be due to slud ge and/or small stones. 4. Occasional colonic diverticulosis. 5. Chronic degenerative disc disease at L4-L5 and to a lesser degree L5-S1. Electronically signed by: Fiona Kolb DO 02/02/2023 5:36 AM CDT Due to temporary technical issues with the PACS/Fluency reporting system, reports are being signed by the in house radiologists without review as a courtesy to insure prompt reporting. The interpreting radiologist is fully responsible for the content of the report
--- NOTE | 2023-02-02 17:50 | RAD REPORT ---
EXAM DESCRIPTION: US - Abdomen Exam Limited - 02/02/2023 3:34 am CLINICAL HISTORY: 62 years Female Ruq abdominal pain TECHNIQUE: Limited sonographic imaging of the right upper quadrant was performed on 02/02/2023 at 3: 27 AM. Imaging was performed to evaluate the gallbladder Comparison: Gallbladder ultrasound report from 01/31/2023. The images were unavailable for review FINDINGS: The gallbladder is well distended and contains multiple intraluminal echoes most consisten t with gallstones. There is also some echogenic debris within the lumen likely representing sludge. T he gallbladder wall measures approximately 3 mm in diameter. The common bile duct measures approximat demar 5 mm in diameter. No definite pericholecystic fluid is identified. IMPRESSION: Cholelithiasis and sludge within the gallbladder lumen without definite biliary ductal d ilatation or definite pericholecystic fluid. There is borderline gallbladder wall thickening. Finding s are similar when compared to the prior study. Electronically signed by: Fiona Kolb DO 02/02/2023 5:28 AM CDT Due to temporary technical issues with the PACS/Fluency reporting system, reports are being signed by the in house radiologists without review as a courtesy to insure prompt reporting. The interpreting radiologist is fully responsible for the content of the report
[2023-02-03] MEDS: PIPER TAZO 3.375 GM in NA CHLORIDE 0.9% 100 ML IV SCH ×3 (00:50→16:00)
[2023-02-03] MEDS: NA CHLORIDE 0.9% 1,000 ML IV SCH ×2 (00:50→15:59)
[2023-02-03 03:27] LABS: Absolute Lymphocytes (CBC) 2.4 K/uL (0.7-4.9); Hematocrit 41.6 % (36.0-45.0); Lymphocytes % 39.7 % (15.3-44.8); MCV 91.6 fL (80-100); MPV 8.8 fL (7.6-11.3); Platelets 298 thou/uL (152-406); RBC Red Blood Cell Count 4.54 M/uL (3.86-4.86)
[2023-02-03 03:39] LABS: Potassium 3.5 mEq/L (3.5-5.1)
[2023-02-03] MEDS ORDERED: KCL 20 MEQ/100 mL IVPB 20 MEQ/100 ML BAG IV SCH (08:00)
[2023-02-03] MEDS: FENTANYL CITR 100 MCG/2 ML IV PRN ×2 (08:17→22:44)
[2023-02-03] MEDS ORDERED: FENTANYL CITR 100 MCG/2 ML ONE (13:22)
[2023-02-03] MEDS ORDERED: ROCURONIUM 50 MG/5 ML VIAL IV ONE (14:02)
[2023-02-03] MEDS ORDERED: LIDOCAINE 2% MPF 5 ML VIAL ONE (14:02)
[2023-02-03] MEDS ORDERED: propofoL 200 MG/20 ML VIAL IV ONE (14:02)
[2023-02-03] MEDS ORDERED: ONDANSETRON 4 MG/2 ML VIAL ONE ×2 (14:02→15:53)
[2023-02-03] MEDS ORDERED: MIDAZOLAM HCL 2 MG/2 ML INJ ONE (14:02)
--- NOTE | 2023-02-03 14:03 | P.PN ---
Subjective Date of Service: 02/03/23 Chief Complaint: Abdominal pain. Patient has no new complaint today. She denies any nausea vomiting. She denies right upper quadrant pain today. Physical Examination - Vital Signs Temperature: 97.3 F Blood Pressure: 122/68 Pulse: 81 Respirations: 16 Pulse Ox (%): 94 Assessment And Plan - Plan Physical Exam General: Alert, In no apparent distress, Oriented x3, Cooperative HEENT: Anicteric sclera. Respiratory: Clear to auscultation bilaterally, Normal air movement Cardiovascular: Regular rate/rhythm, Normal S1 S2 Gastrointestinal: Normal bowel sounds, nontender Musculoskeletal: No swelling, No tenderness Integumentary: No rashes Neurological: Normal speech, Normal tone, Normal affect Diagnosis Acute calculous cholecystitis Chronic kidney disease stage III. Plan Acute calculus cholecystitis MRCP negative for choledocholithiasis. Patient seen and evaluated by surgery Dr. Velazquez. She is planned for lap cholecystectomy today. Mild leukocytosis resolved. Empiric antibiotics. Chronic kidney disease stage III Continue IV hydration and monitor renal function. DVT prophylaxis: SCDs. Discharge Plan: Home
[2023-02-03] MEDS ORDERED: Ringers Lactate 1,000 ML IV ONE (14:17)
[2023-02-03] MEDS ORDERED: dexAMETHasone 4 MG/ML VIAL ONE (14:39)
[2023-02-03] MEDS ORDERED: dexAMETHasone 10 MG/ML VIAL ONE (14:40)
--- NOTE | 2023-02-03 15:02 | P.BOP ---
Preoperative diagnosis: acute cholecystitis, symptomatic cholelithiasis Postoperative diagnosis: same, umbilical hernia Primary procedure: Laparoscopic cholecystectomy Secondary procedure: Open repair of umbilical hernia Estimated blood loss: <10cc Specimen: gb Findings: inflammed dilated GB Anesthesia: General Complications: None Drain(s): ELLE drain Transferred to: Recovery Room Condition: Good
[2023-02-03] MEDS ORDERED: TRAMADOL 37.5mg/APAP 325mg PER TAB PO PRN (15:04)
[2023-02-03] MEDS ORDERED: MORPHINE 10 MG/ML VIAL ONE (15:09)
[2023-02-03] MEDS ORDERED: KETOROLAC 30 MG/ML INJ ONE (15:09)
[2023-02-03] MEDS ORDERED: GLYCOPYRROLATE 0.2 MG/ML SYR ONE (15:12)
[2023-02-03] MEDS ORDERED: NEOSTIGMINE 1 MG/ML -10 ML VIAL ONE (15:12)
[2023-02-03 15:32] VITALS: O2SAT 98
--- NOTE | 2023-02-03 19:52 | OP ---
Date of Procedure: 02/03/2023 Surgeon: Delon Velazquez MD Preoperative Diagnoses: Acute cholecystitis, symptomatic cholelithiasis. Postoperative Diagnoses: Acute cholecystitis, symptomatic cholelithiasis plus umbilical hernia. Procedures: Laparoscopic cholecystectomy and open repair of umbilical hernia. Estimated Blood Loss: Less than 10 cc. Specimen: Gallbladder and hernia sac. Findings: Inflamed dilated gallbladder. Anesthesia: General plus local. Drain: ELLE #10. Indications: This is a case of a female who comes to us with a second time in several days to the ER due to biliary colic and symptomatic cholelithiasis. Second time, she decided to stay and she had a n MRCP done, shows common bile duct free of stones, so a laparoscopic, possible open cholecystectomy was fully explained to the patient with benefits, alternatives, and risks including, but not limited to, infection, bleeding, damage to adjacent structures, anesthesia complication, choledocholithiasis, bile leak, pancreatitis, [place], and even . She also understands this might not relieve any sympto ms. She might need more than one surgical intervention. She understood, signed a consent. Description Of Procedure: Patient was brought to the operating room, placed in supine position. Ane sthesia was done without complication. Abdominal area was prepped and draped in usual sterile fashio n. Marcaine 0.5% was injected for local anesthetic followed by sharp incision of the skin in the inf raumbilical region. Immediately, we noticed the patient to have an umbilical hernia, some incarcerat ed fatty tissue on it. Hernia sac was removed. Fascial edges were cleaned and then Vicryl #1 placed inside the fascia. Isaias trocar was carefully introduced. Pneumoperitoneum was obtained. I place d 3 more trocars, 5 mm each one of them, 1 in epigastric area, 2 in the right upper quadrant under di rect visualization. This allowed me to put a grasper in the fundus of the gallbladder. We noticed t his gallbladder to be inflamed. There were lot of adhesions of omentum to the gallbladder probably f rom acute on chronic inflammation, so with the help of Endo Manan, we were able to lyse those and th en put another grasper in the infundibulum retracting the gallbladder in the inferolateral fashion ex posing the triangle of Calot, obtaining critical view. Carefully the cystic duct and cystic artery w ere clearly isolated circumferentially and a connection between those and the gallbladder were clearl y identified. I proceeded to ligate those by using at least 3 clips proximal, 1 clip distal, ligatio n in the middle. Same was done with the cystic artery. Small little branch of the cystic artery was also ligated using the same technique. Hepatic arteries and common bile duct were protected at all times. Gallbladder was removed from liver using Bovie cauterizer and removed from abdominal cavity u sing an EndoCatch through an umbilical incision. Area was inspected once again. No bile leak. No b leeding. I proceeded to leave a ELLE drain in that area. There was a lot of inflammation in that isaiah on from cholecystitis and I am going to leave a ELLE drain there exiting through one of the trocar site and secured that in place with a 3-0 nylon. At that moment, I proceeded to remove the trocars under direct vision, deflated the pneumoperitoneum, closing the fascia with #1 Vicryl and closed the umbil ical hernia with #1 Vicryl. Irrigated the subcutaneous tissue. The subcutaneous tissue was closed w ith 3-0 chromic and the skin with pepper. Sponge count and instrument counts were correct. Patient tolerated the procedure well. Patient was sent to Recovery in stable condition. LATRICIA/LAMONTE Voice ID: [id number] Report ID: [id number]
[2023-02-04] MEDS: PIPER TAZO 3.375 GM in NA CHLORIDE 0.9% 100 ML IV SCH ×2 (02:02→09:17)
[2023-02-04 03:50] LABS: Albumin 3.1 g/dL (3.4-5.0); Bilirubin Total 0.5 mg/dL (0.2-1.0); Protein, Total 6.6 g/dL (6.4-8.2)
[2023-02-04] MEDS: NA CHLORIDE 0.9% 1,000 ML IV SCH (05:43)
--- NOTE | 2023-02-04 08:54 | P.DS ---
Admission Date: 02/02/23 Discharge Date: 02/04/23 Disposition: ROUTINE DISCHARGE Discharge Condition: FAIR Reason for Admission: Abdominal pain. Brief History of Present Illness: Patient is a 62-year-old female with a past medical history significant for hypertension who presented with complaint of right upper quadrant pain of 2 days duration. Patient was seen in the ER 2 days prior for similar symptoms and was discharged home with Bentyl and Zofran. Patient reported that she started experiencing pain again. Patient reported associated signs and symptoms of nausea and vomiting. Abdomen US showed Cholelithiasis and sludge within the gallbladder lumen without definite biliary ductal dilatation or definite pericholecystic fluid. Borderline gallbladder wall thickening. Patient was hospitalized for further management of acute cholecystitis. Hospital Course: Diagnosis Acute calculous cholecystitis Chronic kidney disease stage III. Patient was admitted to the medical floor, started on IV Zosyn, seen by general surgery Dr. Velazquez. MRCP was negative for choledocholithiasis Dr. Velazquez performed lap cholecystectomy. Patient was monitored overnight with no issues. Patient reassessed this morning by Dr. Velazquez and she is deemed stable for discharge. She is discharged with Augmentin as empiric treatment. She is informed to follow-up with Dr. Velazquez within 1 week. Vital Signs/Physical Exam: Temp Pulse Resp BP Pulse Ox 97.0 F 65 18 119/70 94 02/04/23 04:00 02/04/23 04:00 02/04/23 04:00 02/04/23 04:00 02/04/23 04:00 General: Alert, In no apparent distress, Oriented x3 HEENT: Mucous membr. moist/pink Neck: JVD not distended Respiratory: Clear to auscultation bilaterally, Normal air movement Cardiovascular: No edema, Regular rate/rhythm, Normal S1 S2 Gastrointestinal: Normal bowel sounds, Soft and benign, Non-distended Musculoskeletal: No swelling Integumentary: No rashes, No cyanosis Neurological: Normal strength at 5/5 x4 extr Lymphatics: No axilla or inguinal lymphadenopathy Laboratory Data at Discharge: WBC 6.00 thou/uL (4.3-10.9) 02/03/23 02:50 Hgb 14.2 g/dL (12.0-15.0) 02/03/23 02:50 Hct 41.6 % (36.0-45.0) 02/03/23 02:50 Plt Count 298 thou/uL (152-406) 02/03/23 02:50 Sodium 140 mEq/L (136-145) 02/04/23 02:18 Potassium 4.0 mEq/L (3.5-5.1) D 02/04/23 02:18 BUN 16 mg/dL (7-18) 02/04/23 02:18 Creatinine 1.01 mg/dL (0.55-1.02) 02/04/23 02:18 Glucose 143 mg/dL (74-106) H 02/04/23 02:18 Phosphorus 2.5 mg/dL (2.5-4.9) 02/02/23 03:10 Magnesium 2.4 mg/dL (1.6-2.4) 02/02/23 03:10 Total Bilirubin 0.5 mg/dL (0.2-1.0) 02/04/23 02:18 AST 149 U/L (15-37) H 02/04/23 02:18 ALT 393 U/L (13-56) H 02/04/23 02:18 Alkaline Phosphatase 97 U/L (45-117) 02/04/23 02:18 Triglycerides 85 mg/dL (<150) 02/03/23 02:50 Cholesterol 153 mg/dL (<200) 02/03/23 02:50 HDL Cholesterol 48 mg/dL (40-60) 02/03/23 02:50 Cholesterol/HDL Ratio 3.19 02/03/23 02:50 Lipase 45 U/L (13-75) 02/02/23 03:10 Home Medications: Azilsartan Med/Chlorthalidone [Edarbyclor 40-12.5 mg Tablet] 1 tab PO BEDTIME 02/02/23 Metoprolol Tartrate 25 mg PO BID 02/02/23 Amox/Clavulanate [Augmentin 875-125 Tab] 1 each PO BID #10 tab 02/04/23 Ondansetron [Zofran (Odt)*] 4 mg PO Q6HP PRN #12 tab 02/04/23 traMADol HCL [Ultram*] 50 mg PO Q6H PRN #15 tab 02/04/23 New Medications: Ondansetron [Zofran (Odt)*] 4 mg PO Q6HP PRN #12 tab PRN Reason: Nausea / Vomiting Amox/Clavulanate [Augmentin 875-125 Tab] 1 each PO BID #10 tab traMADol HCL [Ultram*] 50 mg PO Q6H PRN #15 tab PRN Reason: Pain Followup: Delon Velazquez MD [ACTIVE - CAN ADMIT] - 02/08/23 Viraj Maloney MD [Primary Care Provider] - 1-2 Weeks Time spent managing pt's care (in minutes): 32
[2023-02-04 10:56] VITALS: BP 129/76; TEMP 98.7
== END 2023-02-04 12:10 | disposition home or self-care (01) | DRG 418 ==
LOC: ER 02:01 → ERHOLD 08:16 → 2ND 09:24
PROVIDERS: ADMIT Internal Medicine; ATTEND Internal Medicine
PROC: 0WQF0ZZ Repair Abdominal Wall, Open Approach (ICD-10-PCS; 2023-02-03)
PROC: 0FT44ZZ Resection of Gallbladder, Percutaneous Endoscopic Approach (ICD-10-PCS; principal; 2023-02-03 14:15)
DX: K80.00 Calculus of gallbladder with acute cholecystitis without obstruction (principal); K42.0 Umbilical hernia with obstruction, without gangrene; N17.9 Acute kidney failure, unspecified; I12.9 Hypertensive chronic kidney disease with stage 1 through stage 4 chronic kidney disease, or unspecified chronic kidney disease; N18.30 Chronic kidney disease, stage 3 unspecified; R11.2 Nausea with vomiting, unspecified; Z79.899 Other long term (current) drug therapy; Z88.5 Allergy status to narcotic agent; Z87.891 Personal history of nicotine dependence; Z20.822 Contact with and (suspected) exposure to COVID-19; Z80.9 Family history of malignant neoplasm, unspecified
CPT/HCPCS: 36415; 74176; 74181; 76705; 80048; 80053; 80061; 83690; 83735; 84100; 85025; 87811; 88302; 88304; 94010; 96365; 99285; J0696; J1100; J2001; J2250; J2405; J2543; J2704; J2710; J2765; J3010; J3480; J7030; J7120